=== PATIENT | male | born 1995 | race Caucasian/White ===

== ENCOUNTER 2021-02-21 22:36 | Emergency (ER) | payer SELFPAY ==
[2021-02-21] MEDS ORDERED: Ketorolac Tromethamine 30 MG/ML VIAL ONE (22:49)
== END 2021-02-21 23:55 | disposition home or self-care (01) ==
LOC: NAV ERS 22:36
DX: M25.422 Effusion, left elbow (principal); Y04.8XXA Assault by other bodily force, initial encounter
CPT/HCPCS: 96374; J1885